=== PATIENT | male | born 1955 | race Asian ===

== ENCOUNTER 2018-09-20 05:25 | Emergency (ER) | payer OTHER ==
[~2018-09-20] VITALS: Ht 175.3 cm; Wt 69.9 kg
[2018-09-20 05:30] VITALS: Ht 175.3 cm; Wt 69.9 kg
[2018-09-20 06:35] VITALS: BP 119/80
== END 2018-09-20 06:35 | disposition home or self-care (01) ==
LOC: ED 05:25
DX: R40.4 Transient alteration of awareness (principal); Z13.89 Encounter for screening for other disorder; Z85.118 Personal history of other malignant neoplasm of bronchus and lung